=== PATIENT | female | born 1965 | race Caucasian/White ===

== ENCOUNTER 2016-03-19 21:25 | Emergency (ER) | payer OTHER ==
[2016-03-19] MEDS ORDERED: Sodium Chloride 0.9% 1,000 ML PRIMARY IV ONE (22:01)
[2016-03-19] MEDS ORDERED: diphenhydrAMINE 50 MG/1 ML VIAL IVP ONE (22:01)
[2016-03-19] MEDS ORDERED: Famotidine Inj 20 MG in Normal Saline Flush 10 ML IVP ONE (22:01)
[2016-03-19] MEDS ORDERED: methylPREDNISolone 125 MG/2 ML VIAL IVP ONE (22:01)
[2016-03-19] MEDS ORDERED: NORMAL SALINE 10 ML SYRINGE FLUSH IVP PRN (22:01)
[2016-03-19] MEDS ORDERED: LORazepam 2 MG/1 ML VIAL IVP ONE (22:04)
[2016-03-19 22:22] LABS: BASOPHILS # (AUTO) 0.04 10*3/UL; BASOPHILS % (AUTO) 0.7 % (0-1); EOSINOPHILS % (AUTO) 1.9 % (0-8); HEMATOCRIT 37.4 % (37.0-47.0); HEMOGLOBIN 12.9 g/dL (12.0-16.0); IMM GRAN % (AUTO) 0.2 % (0-5); IMM GRAN# (AUTO) 0.01 10*3/UL; LYMPHOCYTES # (AUTO) 1.05 10*3/uL; LYMPHOCYTES % (AUTO) 18.5 % (10-50); MEAN CORPUSCULAR HEMOGLOBIN 32.8 PG (27-31); MEAN CORPUSCULAR HGB CONC 34.5 g/dL (33-37); MEAN PLATELET VOLUME 10.7 FL (7.4-12.2); MONOCYTES # (AUTO) 0.38 10*3/UL (0.3-0.8); MONOCYTES % (AUTO) 6.7 % (5-15); NEUTROPHILS # (AUTO) 4.08 10*3/UL; RDW COEFFICIENT OF VARIATION 13.1 % (11.5-14.5); RED BLOOD COUNT 3.93 10^6/uL (4.20-5.40); WHITE BLOOD COUNT 5.67 10^3/uL (4.8-10.8)
[2016-03-19 22:23] LABS: PLATELET MORPHOLOGY COMMENT NORMAL MORPHOLOGY (NORM)
[2016-03-19 22:31] LABS: ASPARTATE AMINO TRANSFERASE 45 IU/L (8-39); BILIRUBIN,TOTAL 0.7 mg/dL (0.3-1.2); BLOOD UREA NITROGEN 12 mg/dL (7-22); CALCIUM 9.6 mg/dL (8.7-10.7); CHLORIDE 99 meq/L (98-112); CREATININE 0.8 mg/dL (0.50-1.20); EST GLOMERULAR FILTRATION > 60 (>60 ml/min/1.73m(2)); GLUCOSE 121 mg/dL (78-110); POTASSIUM 4.1 meq/L (3.8-5.2); SODIUM 135 meq/L (135-145); TOTAL PROTEIN 7.9 g/dL (6.1-8.0)
[2016-03-19 23:45] VITALS: RESP 20; TEMP 96.7
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
== END 2016-03-19 23:15 | disposition home or self-care (01) ==
LOC: ER 21:25
DX: L40.8 Other psoriasis (principal); L29.8 Other pruritus
CPT/HCPCS: 80053; 85025; 96361; 96374; 96375; 99283 ×2; J1200; J2930; J2060; J7030